=== PATIENT | female | born 1980 | race Caucasian/White ===

== ENCOUNTER 2022-03-26 11:28 | Emergency (ER) | payer BC, SELFPAY ==
[2022-03-26] VITALS (13 sets, daily range): BP systolic 134–179; BP diastolic 86–111; PULSE 100; RESP 16; TEMP 36.6; O2SAT 95–98
[2022-03-26 11:54] LABS: Add Urine Microscopic? NO; Charge for UA Resulting for Rev
[2022-03-26 11:57] LABS: Protein Urine Neg (Negative); Urine Appearance Clear (CLEAR); Urine Color Yellow (Yellow); pH Urine 7 (5-7)
[2022-03-26 11:58] LABS: Bilirubin Urine Neg (Negative); Blood Urine Neg (Negative); Glucose Urine UA 4+ (Normal); Ketones Urine Negative (Negative); Leukocyte Esterase Urine Negative (Negative); Nitrate Urine Negative (Negative); Urobilinogen Urine Neg (Negative)
--- NOTE | 2022-03-26 14:03 | W.ED.ABDPA2 ---
HPI - Abdominal Pain General: Chief Complaint: Abdominal Pain Stated Complaint: abd pain Time Seen by Provider: 03/26/22 14:02 Source: patient Mode of arrival: ambulatory History of Present Illness: 41-year-old female presents emergency room complaining of diarrhea for 1 month. Left lower quadrant abdominal pain that began 2 days ago. No dysuria urgency or frequency no fever no hematochezia melena hematemesis coffee-ground emesis. She has been taking some Imodium the last couple of days symptoms of actually seem to gotten worse since then. MD elicited complaint: abdominal pain Onset (ago): month(s) Pain Consistency: constant Location: LLQ Severity: moderate Quality: cramping Radiation: none Migration to: no migration Exacerbating factors: nothing Relieving factors: nothing Associated Symptoms: Reports bloating, GI cramping, diarrhea, nausea and poor appetite; Denies anorexia, belching, change in bowel habits, change in stool character, chills, coffee ground emesis, constipation, dyspepsia, dysuria, excessive flatus, fever(s), heartburn, hematochezia, hematuria, hematemesis, fecal incontinence, loose stools, melena, syncope and vomiting Review of Systems Const: Denies: fever(s), chills, fatigue or malaise ENMT: Denies: throat pain, ear or mastoid pain, nasal discharge or nasal congestion Card: Denies: syncope Resp: Denies: dyspnea, productive cough or non-productive cough GI: Reports: abdominal pain, nausea, diarrhea, bloating and GI cramping; Denies: vomiting, hematemesis, coffee ground emesis, heartburn, constipation, belching, excessive flatus, fecal incontinence, change in bowel habits, change in stool character, hematochezia or melena : Denies: dysuria or hematuria Skin/Breast: Denies: rash or pruritus Physical Exam Const: COMMON NORMALS: no acute distress GENERAL APPEARANCE: cooperative and comfortable ORIENTATION/CONSCIOUSNESS: Yes awake, Yes oriented to person, Yes oriented to place and Yes oriented to time HENMT: COMMON NORMALS: normocephalic, atraumatic and hearing grossly normal bilaterally HEAD & SCALP: normocephalic and atraumatic Resp: COMMON NORMALS: normal respiratory effort, No retractions, No use of accessory muscles and clear to auscultation bilaterally AUSCULTATION: clear to auscultation bilaterally Cardio: COMMON NORMALS: regular rate, regular rhythm and No murmurs present (Cardio) RATE: regular rate RHYTHM: regular rhythm GI: COMMON NORMALS: Soft to palpation and No hepatosplenomegaly present AUSCULTATION: Yes normoactive bowel sounds PALPATION: Yes Soft to palpation, No Tenderness to palpation present (GI), No Guarding due to palpation present (GI) and Yes No hepatosplenomegaly present OTHER: Unable to elicit any specific tenderness of examination of the abdomen Extremity: COMMON NORMALS: normal to inspection, capillary refill normal, no clubbing, cyanosis or edema, no calf tenderness and no pedal edema Neuro: SENSORIUM/ORIENTATION: Yes oriented to person, Yes oriented to place and Yes oriented to time Skin: COMMON NORMALS: no rashes or lesions noted GENERAL SKIN EXAM: no rashes or lesions noted Course Vital Signs: Vital signs: Vital Signs Temperature 97.8 F 03/26/22 11:46 Pulse Rate 100 03/26/22 11:46 Respiratory Rate 16 03/26/22 11:46 Blood Pressure 149/93 03/26/22 11:46 Pulse Oximetry 96 03/26/22 11:46 MDM - Abdominal Pain Medical Decision Making Labs and imaging reviewed white count was elevated but CT is negative. She is undergoing a lot of psychological stressors. She had some uterine fibroids on the CT I think those are a secondary finding I do not think that is what actually causing her pain suspect some of it may be irritable bowel she had been taking some Imodium recently that may have contributed to it. I think her chronic diarrhea is in large part I do to the psychological stressors. She has not been having any blood there is no fever there is no sign of thickening of the colon or sign of infection. Recommend she use a dicyclomine not take any further antibiotics follow-up with her primary care doctor to get better control of her blood sugars. She may also want to look into seeing gynecology for the fibroids and possibly being referred for a colonoscopy if the symptoms persist. Medical Records I reviewed the patient's medical records. Lab Data I reviewed the patient's lab results. 03/26/22 14:14 03/26/22 14:14 Labs/Radiology: Radiology Impressions Abdomen/Pelvis CT 03/26/22 15:06 IMPRESSION: 1. No acute abdominal or pelvic abnormality identified. No diverticulosis or diverticulitis. 2. Normal appendix. 3. No renal obstruction. 4. Focal nodular areas of enhancement within the uterus are probably fibroids. This can be evaluated on a nonemergent transvaginal pelvic ultrasound. 5. Atherosclerosis aorta. Laboratory Results WBC 15.9 10^3/uL (4.0-10.0) H 03/26/22 14:14 RBC 5.21 10^6/uL (4.1-5.3) 03/26/22 14:14 Hgb 18.0 g/dL (11.5-15.3) H 03/26/22 14:14 Hct 51.7 % (37.0-47.0) H 03/26/22 14:14 MCV 99.2 fl (81-99) H 03/26/22 14:14 MCH 34.5 pg (28.0-34.0) H 03/26/22 14:14 MCHC 34.8 g/dL (30.0-36.0) 03/26/22 14:14 RDW 13.7 % (12.1-15.1) 03/26/22 14:14 Plt Count 247 10^3/cmm (130-400) 03/26/22 14:14 MPV 11.2 fL (7.4-10.4) H 03/26/22 14:14 Neut % (Auto) 67.4 % 03/26/22 14:14 Lymph % (Auto) 24.5 % 03/26/22 14:14 Winston % (Auto) 5.7 % 03/26/22 14:14 Eos % (Auto) 0.9 % 03/26/22 14:14 Baso % (Auto) 0.7 % 03/26/22 14:14 Neut # (Auto) 10.70 10^3/uL (1.8-7.7) H 03/26/22 14:14 Lymph # (Auto) 3.9 10^3/uL (0.8-4.8) 03/26/22 14:14 Winston # (Auto) 0.9 10^3/uL (0.2-0.9) 03/26/22 14:14 Eos # (Auto) 0.2 10^3/uL (0.0-0.8) 03/26/22 14:14 Baso # (Auto) 0.1 10^3/uL (0.0-0.1) 03/26/22 14:14 Nucleated RBC % (auto) 0 % 03/26/22 14:14 Nucleated RBCs # 0.0 /100WBC 03/26/22 14:14 Specimen Type Arterial 03/26/22 14:33 Sample Site Brachial, left 03/26/22 14:33 ABG pH 7.43 (7.35-7.45) 03/26/22 14:33 ABG pCO2 34.9 mmHg (35-45) L 03/26/22 14:33 ABG pO2 70.1 mmHg (80.0-100.0) L 03/26/22 14:33 ABG HCO3 23.3 mmol/L (22-26) 03/26/22 14:33 ABG O2 Saturation 93.5 03/26/22 14:33 ABG Base Excess -0.3 mmol/L (-2.0-2.0) 03/26/22 14:33 Lyndon Test N/a 03/26/22 14:33 A-a O2 Gradient 4.8 mmHg (5-10) L 03/26/22 14:33 Hematocrit 53.0 % (37-47) H 03/26/22 14:33 Hgb O2 Saturation 83.2 % (95-100) L 03/26/22 14:33 Carboxyhemoglobin 10.1 %THgb (0.4-20.1) 03/26/22 14:33 Methemoglobin 0.8 % (0.4-1.5) 03/26/22 14:33 Total Hemoglobin 17.3 g/dL (12-16) H 03/26/22 14:33 Sodium 134.0 mmol/L (131-143) 03/26/22 14:33 Potassium 3.6 mmol/L (3.5-5.0) 03/26/22 14:33 Glucose 326.0 mg/dL (70-115) H 03/26/22 14:33 Ionized Calcium 1.2 mmol/L (1.1-1.4) 03/26/22 14:33 O2 Delivery Device Room air 03/26/22 14:33 FiO2 21.0 % 03/26/22 14:33 Link Trainer ID Amh 03/26/22 14:33 Sodium 133 mmol/L (136-145) L 03/26/22 14:14 Potassium 4.1 mmol/L (3.5-5.1) 03/26/22 14:14 Chloride 100 mmol/L (98-107) 03/26/22 14:14 Carbon Dioxide 21 mmol/L (22-29) L 03/26/22 14:14 Anion Gap 16.1 (5-19) 03/26/22 14:14 BUN 6 mg/dL (6-20) 03/26/22 14:14 Creatinine 0.4 mg/dL (0.5-0.9) L 03/26/22 14:14 GFR Calculation 175.0 mL/min (90-130) H 03/26/22 14:14 Glucose 338 mg/dL (65-115) H 03/26/22 14:14 POC Glucose 352 mg/dL (70-110) H 03/26/22 14:24 Calculated Osmolality 287 mOsm/kg (285-295) 03/26/22 14:14 Calcium 9.1 mg/dL (8.5-10.5) 03/26/22 14:14 Total Bilirubin 0.2 mg/dL (0.15-1.2) 03/26/22 14:14 AST 11 U/L (0-32) 03/26/22 14:14 ALT 13 U/L (0-33) 03/26/22 14:14 Alkaline Phosphatase 78 U/L (35-105) 03/26/22 14:14 Total Protein 7.2 g/dL (6.6-8.7) 03/26/22 14:14 Albumin 4.3 g/dL (3.5-5.2) 03/26/22 14:14 Globulin 2.9 g/dL (1.3-4.6) 03/26/22 14:14 Lipase 32 U/L (13-60) 03/26/22 14:14 Urine Color Yellow (Yellow) 03/26/22 11:51 Urine Appearance Clear (CLEAR) 03/26/22 11:51 Urine pH 7 (5-7) 03/26/22 11:51 Ur Specific Hudson 1.010 (1.005-1.030) 03/26/22 11:51 Urine Protein Neg (Negative) 03/26/22 11:51 Urine Glucose (UA) 4+ (Normal) H 03/26/22 11:51 Urine Ketones Negative (Negative) 03/26/22 11:51 Urine Blood Neg (Negative) 03/26/22 11:51 Urine Nitrate Negative (Negative) 03/26/22 11:51 Urine Bilirubin Neg (Negative) 03/26/22 11:51 Urine Urobilinogen Neg mg/dL (Negative) 03/26/22 11:51 Ur Leukocyte Esterase Negative (Negative) 03/26/22 11:51 Serum Ketones Negative (Negative) 03/26/22 14:14 Discharge Plan Discharge Patient Disposition: Home Clinical Impression: Chronic diarrhea, Diabetes mellitus, Uterine fibroid Condition: Stable Prescriptions: New dicyclomine 20 mg tablet 20 mg PO TID Qty: 30 0RF No Action citalopram 20 mg tablet 20 mg PO BID pantoprazole 40 mg tablet,delayed release (DR/EC) 40 mg PO QAM losartan 25 mg tablet 25 mg PO QAM norethindrone acetate 5 mg tablet 5 mg PO QAM Novolog Flexpen U-100 Insulin 100 unit/mL (3 mL) Insulin Pen See Rx Instructions .ROUTE .COMPLEX Rx Instructions: sliding scale with meals Tresiba FlexTouch U-100 100 unit/mL (3 mL) Insulin Pen 15 unit SUBCUT QAM Discharge Orders: Discharge ED (Routine); Ordered 03/26/22 Ordered By: Sukhdeep Anne Discharge Diet: Advance as tolerated Discharge Activity: Increase activity as tolerated Patient Instructions: Opioid Safety, Pain Management Activity Restrictions/Additional Instructions: Follow-up with your primary care doctor. Suspect that the diarrhea symptoms may be due to psychological stressors. The dicyclomine may be of some help. There were no signs and the CT of any acute abdominal process. There is a secondary finding of uterine fibroids although it is questionable to what degree these are contributing to her abdominal discomfort. Coding Level of Care Code ED Finishing Supervisor [employer] for Ann Marie Rios
--- NOTE | 2022-03-26 14:04 | PC.NURSE ---
Pt reports left sided abdominal pain that began 03/24. Reports diarrhea for the past month, has not sought medical attention for it before today. Denies complaints or fever. Pt reports she had not taken her insulin in a month. States she is going through a divorce and isn't eating much, so she is afraid to take her insulin. pt reports she does not check her blood sugar. educated pt on importance of checking blood sugar and taking medications as prescribed. pt tearful during assessment. lung sounds clear. bowel sounds present
[2022-03-26 14:20] LABS: Basophils # 0.1 10^3/uL (0.0-0.1); Basophils % 0.7 %; Eosinophils # 0.2 10^3/uL (0.0-0.8); Eosinophils % 0.9 %; Hematocrit 51.7 % (37.0-47.0); Lymphocytes # 3.9 10^3/uL (0.8-4.8); Lymphocytes % 24.5 %; Mean Corpuscular HGB Conc 34.8 g/dL (30.0-36.0); Mean Corpuscular Hemoglobin 34.5 pg (28.0-34.0); Mean Corpuscular Volume 99.2 fl (81-99); Mean Platelet Volume 11.2 fL (7.4-10.4); Monocytes # 0.9 10^3/uL (0.2-0.9); Monocytes % 5.7 %; Neutrophils % 67.4 %; Nucleated Red Blood Cells % 0 %; Platelet Count 247 10^3/cmm (130-400); Red Blood Count 5.21 10^6/uL (4.1-5.3); Red Cell Distribution Width 13.7 % (12.1-15.1); White Blood Count 15.9 10^3/uL (4.0-10.0)
--- NOTE | 2022-03-26 14:21 | PC.PHAR ---
pt states she takes care of her own medications-pt states she hasnt used her insulins in a month-[facility] last filled novolog 07/25/21-pt states not used in a month-[facility] last filled humalog kwikpen on 10/29/21 ss with meals-[facility] states last filled tresbia 12/14/2020 for 45 units daily pt states not used in a month and when she was using used 15 units qam-pt states she takes all the medications entered [facility] states not filled celexa,losartan,norethindrone or protonix for a year
[2022-03-26 14:28] LABS: Glucose Point of Care 352 mg/dL (70-110)
[2022-03-26 14:41] LABS: Alanine Aminotransferase 13 U/L (0-33); Albumin Level 4.3 g/dL (3.5-5.2); Alkaline Phosphatase 78 U/L (35-105); Aspartate Amino Transferase 11 U/L (0-32); Blood Urea Nitrogen 6 mg/dL (6-20); Calcium 9.1 mg/dL (8.5-10.5); Carbon Dioxide 21 mmol/L (22-29); Chloride 100 mmol/L (98-107); Globulin 2.9 g/dL (1.3-4.6); Glucose 338 mg/dL (65-115); Lipase 32 U/L (13-60); Osmolality Calculated 287 mOsm/kg (285-295); Sodium 133 mmol/L (136-145); Total Bilirubin 0.2 mg/dL (0.15-1.2); Total Protein 7.2 g/dL (6.6-8.7)
[2022-03-26 14:43] LABS: Anion Gap 16.1 (5-19); Potassium 4.1 mmol/L (3.5-5.1)
[2022-03-26 14:44] LABS: ABG PCO2 34.9 mmHg (35-45); ABG PH Result 7.43 (7.35-7.45); Alveolar-Arterial Oxygen Gradi 4.8 mmHg (5-10); Base Excess ABG -0.3 mmol/L (-2.0-2.0); Blood Gas Operator Identificat AMH; Blood Gas Sample Site Brachial, left; Blood Gas Sample Type Arterial; Carboxyhemoglobin 10.1 %THgb (0.4-20.1); HCO3 ABG 23.3 mmol/L (22-26); HGB O2 Sat 83.2 % (95-100); Ionized Calcium Level - ABG 1.2 mmol/L (1.1-1.4); Methemoglobin 0.8 % (0.4-1.5); Oxygen Device ROOM AIR; Oxygen Saturation ABG 93.5; PO2 ABG 70.1 mmHg (80.0-100.0); Potassium Level - ABG 3.6 mmol/L (3.5-5.0); Total Hemoglobin 17.3 g/dL (12-16)
[2022-03-26 14:48] LABS: Ketone (Acetest) Serum Negative (Negative)
--- NOTE | 2022-03-26 15:06 | CT_ITS ---
WS: [id number] CT ABDOMEN AND PELVIS WITH CONTRAST HISTORY: LEFT lower quadrant pain for 3 days with diarrhea. TECHNIQUE: Imaging performed of the abdomen and pelvis with IV contrast. Single phase imaging of the abdomen. Coronal and sagittal reformats are submitted. All CT scans at [facility] use at [address] one of these dose optimization techniques: automated exposure control; mA and/or kV adjustment per patient size (includes targeted exams where dose is matched to clinical indication); or iterative re construction. IV CONTRAST: Omnipaque 350; 100 mL IV. Oral contrast: No DLP: 635.86 mGy.cm COMPARISON: None available. Lower thorax: Lung bases are clear. Heart is normal size. Small hiatal hernia. Liver/biliary system: Normal size with no intrahepatic dilatation. Gallbladder: Status post cholecystectomy. Pancreas: Normal size pancreas and pancreatic duct. No adjacent inflammation. Spleen: Normal size spleen. No mass or infarct. Adrenal glands: Normal. Right kidney: Normal size kidney. Very small cortical hypodensity superior pole is indeterminate. No obstruction. Left kidney: Normal. Aorta: Mild atherosclerosis with no aneurysm. Lymphadenopathy: None. Free fluid: None. GI tract: Stomach is not distended. No small bowel obstruction. Normal appendix. No evidence for dive rticulitis. Abdominal wall: Unremarkable abdominal wall. No hernia. Pelvis: No free fluid in the pelvis. Mild blush-like enhancement in the LEFT lateral uterus and fundu s may be fibroids. Bones: Unremarkable. CT/CT abdomen pelvis w con* [id number] IMPRESSION: 1. No acute abdominal or pelvic abnormality identified. No diverticulosis or d iverticulitis. 2. Normal appendix. 3. No renal obstruction. 4. Focal nodular areas of enhancement within the uterus are probably fibroids. This can be evaluated on a nonemergent transvaginal pelvic ultrasound. 5. Atherosclerosis aorta.
[2022-03-26] MEDS: iohexol 350 mg/mL 500 mL Btl (per mL) IV (15:40)
== END 2022-03-26 14:58 | disposition home or self-care (01) ==
PROVIDERS: Internal Medicine Cardiovascular Disease; Nurse Practitioner Family; Emergency Provider Family Medicine
DX: K52.9 Noninfective gastroenteritis and colitis, unspecified (principal); D25.9 Leiomyoma of uterus, unspecified; E11.9 Type 2 diabetes mellitus without complications; Z79.4 Long term (current) use of insulin; I70.0 Atherosclerosis of aorta
CPT/HCPCS: 36416; 36600; 74177; 80051; 80053; 81003; 82009; 82330; 82805; 82962; 83690; 85025; 99284; Q9967

== ENCOUNTER → 2023-04-23 10:52 | Outpatient (BNVA) | payer BC, SELFPAY | PROVIDERS: Visit Provider Nurse Practitioner | DX: R05.9 Cough, unspecified (principal); H66.002 Acute suppurative otitis media without spontaneous rupture of ear drum, left ear | CPT/HCPCS: 87400 ==